=== PATIENT | female | born 1950 | race Asian ===

== ENCOUNTER 2020-10-17 09:27 | Outpatient (CLI) | payer BC, MEDICARE | END 2020-10-17 09:28 | disposition home or self-care (01) | LOC: CSHMAMMO 09:27 | PROVIDERS: ATTEND Surgery | DX: R92.8 Other abnormal and inconclusive findings on diagnostic imaging of breast (principal); R92.0 Mammographic microcalcification found on diagnostic imaging of breast; Z98.890 Other specified postprocedural states | CPT/HCPCS: G0279 ==

== ENCOUNTER 2021-04-12 13:29 | Outpatient (CLI) | payer BC, MEDICARE | END 2021-04-12 13:30 | disposition home or self-care (01) | LOC: CSHMAMMO 13:29 | PROVIDERS: ATTEND Family Medicine | DX: R92.2 Inconclusive mammogram (principal) | CPT/HCPCS: 77066; G0279 ==

== ENCOUNTER 2021-04-12 14:18 | Outpatient (CLI) | payer BC, MEDICARE | END 2021-04-12 14:19 | disposition home or self-care (01) | LOC: CSHMRI 14:18 | PROVIDERS: ATTEND Family Medicine | DX: G91.2 (Idiopathic) normal pressure hydrocephalus (principal); I67.9 Cerebrovascular disease, unspecified; Q14.8 Other congenital malformations of posterior segment of eye | CPT/HCPCS: 70553 ==

== ENCOUNTER 2021-10-02 10:23 | Outpatient (CLI) | payer BC, MEDICARE | END 2021-10-02 10:24 | disposition home or self-care (01) | LOC: CSHMAMMO 10:23 | PROVIDERS: ATTEND Family Medicine | DX: M81.0 Age-related osteoporosis without current pathological fracture (principal); M85.851 Other specified disorders of bone density and structure, right thigh; M85.852 Other specified disorders of bone density and structure, left thigh | CPT/HCPCS: 77080 ==

== ENCOUNTER 2022-03-19 13:55 | Outpatient (CLI) | payer BC, MEDICARE | END 2022-03-19 13:56 | disposition home or self-care (01) | LOC: CSHULT 13:55 | PROVIDERS: ATTEND Family Medicine | DX: M25.562 Pain in left knee (principal); M71.22 Synovial cyst of popliteal space [Baker], left knee | CPT/HCPCS: 76882 ==

== ENCOUNTER 2022-07-17 16:43 | Outpatient (CLI) | payer BC, MEDICARE | END 2022-07-17 16:44 | disposition home or self-care (01) | LOC: CSHRAD 16:43 | PROVIDERS: ATTEND Family Medicine | DX: M19.012 Primary osteoarthritis, left shoulder (principal) ==

== ENCOUNTER 2022-10-14 08:54 | Outpatient (CLI) | payer BC, MEDICARE | END 2022-10-14 08:55 | disposition home or self-care (01) | LOC: CSHULT 08:54 | PROVIDERS: ATTEND Family Medicine | DX: R92.8 Other abnormal and inconclusive findings on diagnostic imaging of breast (principal); N63.21 Unspecified lump in the left breast, upper outer quadrant ==

== ENCOUNTER 2023-01-15 12:15 | Outpatient (CLI) | payer BC, MEDICARE | END 2023-01-15 12:16 | disposition home or self-care (01) | LOC: CSHMAMMO 12:15 | PROVIDERS: ATTEND Internal Medicine Hematology & Oncology | DX: M81.8 Other osteoporosis without current pathological fracture (principal); M85.851 Other specified disorders of bone density and structure, right thigh; M85.852 Other specified disorders of bone density and structure, left thigh | CPT/HCPCS: 77080 ==

== ENCOUNTER 2023-05-01 09:24 | Outpatient (CLI) | payer BC, MEDICARE | END 2023-05-01 09:25 | disposition home or self-care (01) | LOC: CSHMAMMO 09:24 | PROVIDERS: ATTEND Family Medicine | DX: N63.21 Unspecified lump in the left breast, upper outer quadrant (principal) | CPT/HCPCS: 77066; G0279 ==

== ENCOUNTER 2024-04-15 09:49 | Outpatient (CLI) | payer BC, MEDICARE | END 2024-04-15 09:50 | disposition home or self-care (01) | LOC: CSHULT 09:49 | PROVIDERS: ATTEND Family Medicine | DX: R09.89 Other specified symptoms and signs involving the circulatory and respiratory systems (principal); E04.9 Nontoxic goiter, unspecified; R93.89 Abnormal findings on diagnostic imaging of other specified body structures | CPT/HCPCS: 76536; 93880 ==